=== PATIENT | male | born 1955 | race Hispanic/Latino ===

== ENCOUNTER → 2022-07-12 | Outpatient (CLI) | payer OTHER ==
[~2022-07-12] MED LIST: IOHEXOL 350 MG/ML 100ML INFUS..BTL IV ONE
== END | disposition home or self-care (01) ==
LOC: RAH 11:29
PROVIDERS: ATTEND Student in an Organized Health Care Education/Training Program
DX: R07.9 Chest pain, unspecified (principal)
CPT/HCPCS: 75574; Q9967

== ENCOUNTER → 2022-07-14 | Outpatient (CLI) | payer OTHER | END | disposition home or self-care (01) | LOC: SHCH 12:50 → EDUNIT# 13:30 | PROVIDERS: ATTEND Student in an Organized Health Care Education/Training Program | DX: R07.9 Chest pain, unspecified (principal) | CPT/HCPCS: 93306 ==

== ENCOUNTER 2022-09-03 07:03 | Day surgery (SDC) | payer OTHER ==
[2022-08-29 16:30] VITALS: BP 122/64
[2022-08-29 17:10] LABS: APPEARANCE,URINE CLEAR (CLEAR); BILIRUBIN,URINE NEGATIVE (NEGATIVE); COLOR,URINE LIGHT-YELLOW (YELLOW); GLUCOSE, URINE (UA) >=1000 mg/dL (NEGATIVE); KETONES,URINE 5 mg/dL (NEGATIVE); LEUKOCYTE ESTERASE ,URINE NEGATIVE Leu/uL (NEGATIVE); NITRATE,URINE NEGATIVE (NEGATIVE); OCCULT BLOOD,URINE NEGATIVE (NEGATIVE); PH,URINE 5.5 (5.0-8.0); PROTEIN,URINE NEGATIVE (NEGATIVE); UROBILINOGEN,URINE 0.2 mg/dL (0.2-1.0)
[2022-08-29 17:16] LABS: RBC,URINE 0-1 /HPF (0-1); WBC,URINE 0-1 /HPF (0-1)
[2022-08-29 17:41] LABS: BASOPHILS % (AUTO) 0.5 % (0.0-5.0); EOSINOPHILS % (AUTO) 2.9 % (0.0-8.0); HEMATOCRIT 47.8 % (42-54); LYMPHOCYTES % (AUTO) 27.6 % (21.0-51.0); MEAN CORPUSCULAR HEMOGLOBIN 27.8 pg (27.0-33.0); MEAN CORPUSCULAR HGB CONC 32.4 g/dL (32.0-36.0); MEAN CORPUSCULAR VOLUME 85.8 fL (79-99); MONOCYTES % (AUTO) 8.3 % (3.0-13.0); NEUTROPHILS % (AUTO) 60.5 % (40.0-77.0); PLATELET COUNT (AUTO) 260 K/uL (130-400); RED BLOOD CELL COUNT(AUTO) 5.57 MIL/uL (4.50-6.20); RED CELL DISTRIBUTION WIDTH 13.2 % (11.0-15.5); WHITE BLOOD COUNT (AUTO) 5.8 K/uL (4.8-10.8)
[2022-08-29 17:49] LABS: INR 0.93 (0.85-1.15)
[2022-08-29 17:51] LABS: PARTIAL THROMBOPLASTIN TIME 29.4 SEC (26.3-35.5)
[2022-08-29 17:54] LABS: CREATININE 0.8 mg/dL (0.5-1.5)
[2022-08-30 00:24] LABS: B-TYPE NATRIURETIC PEPTIDE 7 pg/mL (0-100)
[~2022-09-03] VITALS: Ht 167.6 cm; Wt 65.8 kg
[2022-09-03] VITALS (9 sets, daily range): BP systolic 112–146; BP diastolic 66–85
[~2022-09-03 07:03] MED LIST changes: +0.9% NACL 500ML IV.SOLN 500 ML IV SCH; +ACET-66 PO; +ALOG25TA2 PO; +CYAN100099 PO; +EMPA25TA PO; +ESCI-8 PO; -IOHEXOL 350 MG/ML 100ML INFUS..BTL IV ONE; +LOSA25TA41 PO; +METF-445 PO; +PRAZ1CAP5 PO; +ROSU10TA28 PO; +SILD100T PO
[2022-09-03] MEDS ORDERED: 0.9%NACL 1000ML 1,000 ML IV ONE (07:30)
[2022-09-03] MEDS ORDERED: LIDOCAINE HCL 400MG/20ML VIAL ONE (08:29)
[2022-09-03] MEDS ORDERED: MIDAZOLAM HCL 1 MG/ML 2ML VIAL ONE (08:29)
[2022-09-03] MEDS ORDERED: VERAPAMIL HCL 2.5 MG/ML VIAL ONE (08:30)
[2022-09-03] MEDS ORDERED: FENTANYL CITRATE PF 50 MCG/1 ML 2ML VIAL ONE (08:30)
[2022-09-03] MEDS ORDERED: IOHEXOL 350 MG/ML 100ML INFUS..BTL IV ONE (08:30)
[2022-09-03] MEDS ORDERED: NITROGLYCERIN 50MG VIAL ONE (08:30)
[2022-09-03] MEDS ORDERED: HEPARIN 10,000 UNIT/10ML (1,000 UNIT/ML) VIAL ONE (08:31)
[2022-09-03] MEDS ORDERED: GLUCAGON 1MG KIT 1 MG ML IM PRN (09:30)
[2022-09-03] MEDS ORDERED: DEXTROSE 50%-WATER 50 ML DISP.SYRIN IV PRN (09:30)
[2022-09-03] MEDS ORDERED: ASPI-1197 PO (12:09)
[2022-09-03] MEDS ORDERED: AEC81 PO (12:10)
== END 2022-09-03 13:15 | disposition home or self-care (01) ==
LOC: DAH 07:03
PROVIDERS: ATTEND Student in an Organized Health Care Education/Training Program
DX: I25.119 Atherosclerotic heart disease of native coronary artery with unspecified angina pectoris (principal); I25.82 Chronic total occlusion of coronary artery; I11.0 Hypertensive heart disease with heart failure; I50.42 Chronic combined systolic (congestive) and diastolic (congestive) heart failure; E11.9 Type 2 diabetes mellitus without complications; E78.5 Hyperlipidemia, unspecified; Z79.01 Long term (current) use of anticoagulants; Z98.890 Other specified postprocedural states; Z79.84 Long term (current) use of oral hypoglycemic drugs; Z79.899 Other long term (current) drug therapy
CPT/HCPCS: 80048; 83880; 85025; 85610; 85730; 81001; 36415; 71045; 93005; 93458; 82948 ×2; C1769; C1894; J3010; J3490 ×3; J7030; J1644 ×2; J2250; Q9967; A4215; A4222; A4221; A4663; A4216; A4606; Q9965 ×2; A4223 ×3; 99156; 99157

== ENCOUNTER → 2022-12-22 | Outpatient (CLI) | payer OTHER ==
[~2022-12-22] MED LIST changes: -0.9% NACL 500ML IV.SOLN 500 ML IV SCH; +AEC81 PO; +ATOR20TA65 PO; +FURO20TA6 PO; -LOSA25TA41 PO; +METO25 PO; -ROSU10TA28 PO; -SILD100T PO
== END | disposition home or self-care (01) ==
LOC: SHCH 13:58
PROVIDERS: ATTEND Student in an Organized Health Care Education/Training Program
DX: Z48.812 Encounter for surgical aftercare following surgery on the circulatory system (principal)
CPT/HCPCS: 93306